=== PATIENT | female | born 1995 | race Caucasian/White ===

== ENCOUNTER → 2022-03-21 | Outpatient (CLI) | payer OTHER | LOC: M WHC 12:07 | PROVIDERS: ATTEND Physician Assistant | DX: N64.52 Nipple discharge (principal) ==

== ENCOUNTER → 2022-07-08 | Outpatient (CLI) | payer OTHER ==
[~2022-07-08] MED LIST: PROHANCE 279.3MG/ML 15ML VIAL ONE
== END ==
LOC: M PLAIMG 09:12
PROVIDERS: ATTEND Surgery
DX: N64.52 Nipple discharge (principal); R92.2 Inconclusive mammogram; N63.11 Unspecified lump in the right breast, upper outer quadrant; R92.8 Other abnormal and inconclusive findings on diagnostic imaging of breast
CPT/HCPCS: A9576; C8908

== ENCOUNTER → 2022-07-21 | Outpatient (CLI) | payer OTHER | LOC: M WHC 12:20 | PROVIDERS: ATTEND Surgery | DX: R92.8 Other abnormal and inconclusive findings on diagnostic imaging of breast (principal) ==